=== PATIENT | female | born 1940 | race Caucasian/White ===

== ENCOUNTER 2016-07-16 11:15 | Emergency (ER) | payer MEDICARE ==
[~2016-07-16] VITALS: Ht 165.1 cm; Wt 126.8 kg
[2016-07-16 11:14] VITALS: BP 155/57; PULSE 64; RESP 16; O2SAT 98
[~2016-07-16 11:15] MED LIST: ASPI81TA3 PO; CARV6.252 PO; FUR20 PO; GABA-500 PO; HYDR-3825 PO; LACT1TAB13 PO; LIP40 PO; MULT-666 PO; OMEG300C3 PO; OMEP20CA11 PO; OXYB5TAB10 PO; ZYL100 PO
--- NOTE | 2016-07-16 11:16 | ED.REPORT ---
HPI-General Illness Date of Service Jul 16, 2016 ED Provider: Tavo Charles DO Pt is a 76 y.o. female with an extensive medical hx including pacemaker insertion, lung CA, TIA,CAD, DM, HTN,and HLD who presents to the ED via EMS c/o elevated heart rate lasting 1.5hours onset 0900. Pt states that she was sitting in her chair at home when her sx began. She reports associated dizziness and SOB. She denies chest pain, cough, fever, diaphoresis, and nausea. Upon arrival to the ED pt states her sx had resolved. Nursing Notes Stated Complaint: HEART RACING Chief Complaint: Dysrhythmia/Cardiac Nursing Notes Reviewed: Yes Allergies: Coded Allergies: adhesive tape (Verified Allergy, Mild, Rash, 09/08/15) Rash "after a while." Scheduled Allopurinol (Allopurinol) 100 Mg Tablet 100 MG PO DAILY Aspirin Chew (Aspirin Chew) 81 Mg Chew 81 MG PO DAILY Atorvastatin (Lipitor) 40 Mg Tablet 40 MG PO DAILY Carvedilol (Carvedilol) 12.5 Mg Tablet 12.5 MG PO BID Furosemide (Furosemide) 20 Mg Tab 20 MG PO DAILY Gabapentin (Gabapentin) 100 Mg Capsule 100 MG PO TID Lactobacillus Acidophilus (Acidophilus) 1 Each Tablet 1 EACH PO BID Omeprazole (Omeprazole) 20 Mg Capsule.dr 20 MG PO DAILY Oxybutynin Chloride (Oxybutynin Chloride) 5 Mg Tablet 5 MG PO HS Scheduled PRN Hydrocodone-Acetaminophen 7.5-325 mg (Hydrocodone-Acetaminophen 7.5-325 mg) 1 Each Tablet 0.5-1 TABLET PO Q4H PRN PRN For Pain General Time Seen by MD: 11:15 Chief Complaint Other (Elevated heart rate) Hx Obtained From: Patient Arrived By: Ambulance Sudden in Onset?: Yes Onset Occurred: 1 - 4 hours ago Symptom Duration: 1 - 4 hours Severity: Current: No pain currently Severity: Maximum: No pain Past Medical History Past Medical History Insomnia PVD Chronic kidney disease, stage II gastric and esophageal ulers gout h/o T1NO left mid lung hypermetabolic nodule - s/p Steriotactic Body Radiation Therapy (SBRT) w/resolution on CT 01/19/15 h/o TIA Lung cancer Reports: Cancer, Coronary artery disease, Diabetes mellitus, Hyperlipidemia, Hypertension, Transient ischemic attack Past Surgical History Pacemaker for bradycardia Right rotator cuff repair Bilateral knee replacements lysis of adhesions oopherectomy for ovarian cys stomach stapling x2 Righ hip Repair Reports: Appendectomy, Cholecystectomy, Hysterectomy, Tonsillectomy Reports: Pacemaker insertion, Tubal ligation Family History noncontributory Smoking History Former Smoker Social History Alcohol Use: Denies alcohol use Drug Use: Denies drug use Other Social History: Lives alone, Local resident Ambulatory Status Independent Review of Systems Full Review of Systems Constitutional: Denies: Fever Respiratory: Reports: Shortness of breath, Denies: Non-productive cough Cardiovascular: Reports: Palpitations (Elevated HR), Denies: Chest pain GI: Denies: Nausea Skin: Denies Diaphoresis Neurologic: Reports: Dizziness Complete sys rev & neg: except as marked. Physical Exam Vital Signs Initial VS: Reviewed Head / Eyes: Atraumatic, Normocephalic Extremities: Vascular intact, Neuro intact Skin: Warm, Dry, No cyanosis Neurologic: Alert, Oriented, Nonfocal Psychiatric: Mood/affect normal, Behavior normal, Normal thought content General/Constitutional: Awake, Alert, No acute distress, Well appearing, Well developed, Well hydrated, Well nourished, Not toxic appearing Respiratory / Chest: Atraumatic, Breath sounds NL, Breath sounds = bilat, No respiratory distress, No rales, No rhonchi, No wheezing, No retractions, No stridor Cardiovascular: Heart rate NL, Regular rhythm, Heart sounds NL Lower Ext Edema: Positive: Bilateral 1+, Pitting Pacemaker, left side Abdomen: Atraumatic, Soft, Non-tender, No distention Interpretation & Diagnostics Lab Results Interpretation Test 07/16/16 11:50 White Blood Count 5.6th/mm3 (3.8-10.1) Red Blood Count 4.74mil/mm3 (3.90-5.20) Hemoglobin 13.2g/dL (12.0-15.6) Hematocrit 43.0% (35.0-46.0) Mean Corpuscular Volume 90.7fL (81-100) Mean Corpuscular Hemoglobin 27.8pg (27.0-35.0) Mean Corpuscular Hemoglobin Concent 30.7% (32.0-37.0) Red Cell Distribution Width 16.1% (12.3-15.4) Platelet Count 190bil/L (150-400) Neutrophils (%) (Auto) 65.7% (40-74) Lymphocytes (%) (Auto) 23.2% (14-46) Monocytes (%) (Auto) 7.5% (4-12) Eosinophils (%) (Auto) 2.9% (0-5) Basophils (%) (Auto) 0.5% (0-3) Sodium Level 143mEq/L (134-144) Potassium Level 4.2mEq/L (3.5-5.2) Chloride Level 102mEq/L (97-108) Carbon Dioxide Level 27mmol/L (18-29) Blood Urea Nitrogen 22mg/dL (8-27) Creatinine 0.99mg/dL (0.57-1.00) Estimat Glomerular Filtration Rate 78mL/min (>59) Glucose Level 161mg/dL (60-99) Calcium Level 8.6mg/dL (8.5-10.1) Magnesium Level 1.8mg/dL (1.6-2.6) Total Bilirubin 0.5mg/dL (0.0-1.2) Aspartate Amino Transf (AST/SGOT) 14U/L (0-50) Alanine Aminotransferase (ALT/SGPT) 10U/L (0-32) Alkaline Phosphatase 101U/L (25-165) Troponin T 0.010ug/L (0.0-0.011) Total Protein 6.8g/dL (6.4-8.4) Albumin 3.9g/dL (3.4-5.0) Hold Medrano Top Tube Received (Received) ECG Interpretation Time: 11:29 Interpreted by: ED physician Normal ECG Interpretation: No change from prior ECGs (09/08/15) Rhythm / Conduction: Pacemaker rhythm (rate of 62) X-Ray Chest Interpretation Chest Xray Interpretation: IMPRESSION: 1. Moderate cardiomegaly, without evidence for congestive heart failure. 2. Irregular 2.5 cm lateral left upper lobe opacity is better seen on recent chest CT, with associated overlying rib destruction on CT consistent with neoplasm. Dictated by: Sabino Fraser M.D. on 07/16/2016 at 12:16 Approved by: Sabino Fraser M.D. on 07/16/2016 at 12:19 Re-Eval/Medical Decision Source of Hx: Old records Time of Eval: 13:24 Re-Evaluation/Progress Note: Pt rechecked. Discussed lab results and plan for discharge. Pt understadns and agrees with plan. Counseled Regarding: Diagnosis, Lab results, Need for follow-up, When/why to return to ED Discharge & Departure Primary Impression: Heart palpitations Ruled Out: Acute coronary syndrome Disposition: Home Discharge Condition All VS Reviewed: Yes Condition: Stable Patient Instructions: Palpitations (ED) Additional Instructions: Thank you for entrusting us with your care today. Your examination included a physical exam, interview, EKG, chest x-ray, and labs. Your imaging and lab results are reassuring and no serious mechanism for your heart palpitations were found. I recommend that you follow-up with your primary care physician next week. Please seek care if you experience similar or worsening symptoms. Referrals: Ryann Matos MD (PCP) Scribe Attestation Portions of this note were transcribed by Angeli Peña. Dr. Melvin Epps personally performed the history, physical exam and medical decision-making; I reviewed and confirmed the accuracy of the information in the transcribed note. Signed by: Tracy Starr, 07/16/2016 and 1329. copies to: Ryann Matos MD, Gary R DO Jul 16, 2016 11:15 ANGELI PEÑA Jul 16, 2016 11:26 next week. Please seek care if you experience similar or worsening symptoms. Referrals: Ryann Matos MD (PCP) Scribe Attestation Portions of this note were transcribed by Angeli Peña. Dr. Melvin Epps personally performed the history, physical exam and medical decision-making; I reviewed and confirmed the accuracy of the information in the transcribed note. Signed by: Tracy Starr, 07/16/2016 and 1329. copies to: Ryann Matos MD, Gary R DO Jul 16, 2016 11:15 ANGELI PEÑA Jul 16, 2016 11:26
[2016-07-16 11:59] LABS: BASOPHILS % (AUTO) 0.5 % (0-3); EOSINOPHILS % (AUTO) 2.9 % (0-5); MONOCYTES % (AUTO) 7.5 % (4-12); Mean Corpuscular Hemoglobin 27.8 pg (27.0-35.0); Mean Corpuscular Volume 90.7 fL (81-100); NEUTROPHILS % (AUTO) 65.7 % (40-74); Platelet Count 190 bil/L (150-400)
[2016-07-16 12:12] VITALS: BP 157/61; PULSE 64; RESP 17; O2SAT 96
[2016-07-16 12:19] LABS: TROPONIN T 0.01 ug/L (0.0-0.011)
--- NOTE | 2016-07-16 12:21 | DRSVH ---
PROCEDURE: X-RAY CHEST ONE VIEW, PORTABLE ([id number]) INDICATIONS: 76 year-old female with dysrhythmia. TECHNIQUE: One view of the chest was acquired. COMPARISON: [facility], CT, CT CHEST W CON, 07/06/2016, 10:47. [facility], C R, XR CHEST 2VW, 09/10/2015, 11:05. [facility], CR, XR CHEST 1VW (PORTABLE), 09/08/2015, 5 :56. [facility], CR, XR CHEST 1VW (PORTABLE), 07/21/2015, 8:04. FINDINGS: Surgical changes and devices: Left chest wall dual chamber pacemaker is again noted. Lungs and pleura: No pleural effusions or pneumothorax. Lungs are clear, except for persistent late ral left upper lobe peripheral opacity. Mediastinum: Mediastinal contours appear normal. There is moderate cardiomegaly. There is aortic at herosclerosis. Bones and chest wall: No suspicious bony lesions. Overlying soft tissues appear unremarkable. IMPRESSION: 1. Moderate cardiomegaly, without evidence for congestive heart failure. 2. Irregular 2.5 cm lateral left upper lobe opacity is better seen on recent chest CT, with associate d overlying rib destruction on CT consistent with neoplasm. Dictated by: Sabino Fraser M.D. on 07/16/2016 at 12:16 Approved by: Sabino Fraser M.D. on 07/16/2016 at 12:19
[2016-07-16 12:30] LABS: Magnesium 1.8 mg/dL (1.6-2.6)
[2016-07-16] MEDS ORDERED: CARV12.52 PO (12:49)
[2016-07-16 13:59] VITALS: BP 129/32; PULSE 63; RESP 15; O2SAT 97
[2016-08-14] MEDS ORDERED: GABA-500 PO (14:59)
[2016-08-14] MEDS ORDERED: ASPI-973 PO (14:59)
[2016-08-14] MEDS ORDERED: CARV6.252 PO (14:59)
== END 2016-07-16 14:02 | disposition home or self-care (01) ==
LOC: SED 11:15
DX: R00.2 Palpitations (principal); I12.9 Hypertensive chronic kidney disease with stage 1 through stage 4 chronic kidney disease, or unspecified chronic kidney disease; N18.2 Chronic kidney disease, stage 2 (mild); I25.10 Atherosclerotic heart disease of native coronary artery without angina pectoris; Z86.73 Personal history of transient ischemic attack (TIA), and cerebral infarction without residual deficits; Z90.49 Acquired absence of other specified parts of digestive tract; Z90.710 Acquired absence of both cervix and uterus; Z95.0 Presence of cardiac pacemaker; Z85.118 Personal history of other malignant neoplasm of bronchus and lung; Z87.891 Personal history of nicotine dependence; Z79.82 Long term (current) use of aspirin

== ENCOUNTER 2016-08-02 00:12 | Day surgery (SDC) | payer MEDICARE ==
[2016-08-02] VITALS (15 sets, daily range): BP systolic 117–152; BP diastolic 41–97; PULSE 60–70; RESP 14–18; O2SAT 91–96
[~2016-08-02] VITALS: Ht 165.1 cm; Wt 130.4 kg
[~2016-08-02 00:12] MED LIST changes: +CARV12.52 PO; -CARV6.252 PO; -MULT-666 PO; -OMEG300C3 PO
[2016-08-02] MEDS ORDERED: fentaNYL-PF 50 mCg/mL 2 mL Inj IVPUSH PRN (12:10)
--- NOTE | 2016-08-02 12:37 | NUR ---
CHANTE Patient to [facility] bed 6 at 1100. No family at bedside but patient states son-in-law is available for transport home. Patient denies pain. HL X 1 placed. Labs confirmed with MD. Consent pr and witnessed. History and medications reviewed. Pre-procedure teaching done and questions answered.
[2016-08-02] MEDS ORDERED: Flumazenil 0.1 mg/mL 5 mL Inj IV ONE (12:45)
[2016-08-02] MEDS ORDERED: 0.9% Sodium Chloride 500 ML ONE (12:45)
[2016-08-02] MEDS ORDERED: fentaNYL-PF 50 mCg/mL 2 mL Inj ONE (12:45)
--- NOTE | 2016-08-02 16:21 | DRSVH ---
PROCEDURE: X-RAY CHEST ONE VIEW, PORTABLE ([id number]) INDICATIONS: POST LUNG BIOPSY TECHNIQUE: One view of the chest was acquired. COMPARISON: [facility], CT, CT CHEST W CON, 07/06/2016, 10:47. [facility], C R, XR CHEST 1VW (PORTABLE), 07/16/2016, 11:42. FINDINGS: Surgical changes and devices: Pacemaker. Lungs and pleura: Left upper lobe/lingular opacities are unchanged. No pneumothorax. Mediastinum: Mediastinal contours appear normal. Heart size is enlarged. Bones and chest wall: No suspicious bony lesions. Overlying soft tissues appear unremarkable. Unch anged left lateral fourth and fifth rib fractures. IMPRESSION: Stable exam without post lung biopsy pneumothorax. Dictated by: Ana Oseguera M.D. on 08/02/2016 at 16:18 Approved by: Ana Oseguera M.D. on 08/02/2016 at 16:19
--- NOTE | 2016-08-02 17:23 | DRSVH ---
PROCEDURE: CT-GUIDED BIOPSY OF THE LUNG OR MEDIASTINUM ([id number]) Sedation analgesia for 20 minutes. INDICATIONS: PERIPHERAL LEFT LUNG MASS TECHNIQUE: The indications, alternatives, benefits, risks, and possible complications of the procedure were comm unicated to the patient. Informed written consent from the patient was obtained and placed in the art. Continuous EKG and hemodynamic monitoring was started by trained personnel. For radiation dose reduction, the following was used: automated exposure control, adjustment of mA and/or kV according to patient size. The patient was brought to the CT suite and fabric worker leader spiral CT imaging was performed with localization g rid. The appropriate site for percutaneous access to the biopsy target was marked, was prepped and d raped sterilely, and was infused with local anaesthesia. Under CT guidance, a core biopsy trocar and needle set was advanced to the biopsy target, and specimen(s) were obtained. The trocar and needle were then removed, and the patient was sent for post-procedure monitoring. COMPARISON: None. FINDINGS: Biopsy site: Left upper lobe Needle: 20 gauge biopsy needle with introducer trocar. Number of passes: 4 Medications: 1% lidocaine for local anaesthesia. IV Fentanyl and Versed for conscious sedation for 20 minutes (see nursing record). Complications: None. IMPRESSION: Successful CT-guided biopsy of left upper lobe. Dictated by: Ana Oseguera M.D. on 08/02/2016 at 17:21 Approved by: Ana Oseguera M.D. on 08/02/2016 at 17:22
--- NOTE | 2016-08-02 19:04 | DRSVH ---
PROCEDURE: X-RAY CHEST ONE VIEW, PORTABLE ([id number]) INDICATIONS: POST LUNG BX TECHNIQUE: One view of the chest was acquired. COMPARISON: [facility], CR, XR CHEST 1VW (PORTABLE), 08/02/2016, 15:59. FINDINGS: Surgical changes and devices: There is a cardiac pacemaker in expected position. Lungs and pleura: No pneumothorax. There is opacity in the left midlung zone. Mediastinum: Mediastinal contours appear normal. Heart is mildly enlarged. Bones and chest wall: No suspicious bony lesions. Overlying soft tissues appear unremarkable. IMPRESSION: No pneumothorax post thoracentesis. Dictated by: Apple De La Torre M.D. on 08/02/2016 at 19:02 Approved by: Apple De La Torre M.D. on 08/02/2016 at 19:03
--- NOTE | 2016-08-02 19:32 | DRSVH ---
PROCEDURE: X-RAY CHEST ONE VIEW, PORTABLE ([id number]) INDICATIONS: POST LUNG BX TECHNIQUE: One view of the chest was acquired. COMPARISON: [facility], CR, XR CHEST 1VW (PORTABLE), 08/02/2016, 17:22. [facility], CR, XR CHEST 1VW (PORTABLE), 08/02/2016, 15:59. FINDINGS: Surgical changes and devices: None. Lungs and pleura: No pleural effusions or pneumothorax. Unchanged patchy opacities. Mediastinum: Mediastinal contours appear normal. Heart size is normal. Bones and chest wall: No suspicious bony lesions. Overlying soft tissues appear unremarkable. IMPRESSION: Stable interval exam. No pneumothorax. Dictated by: Ana Oseguera M.D. on 08/02/2016 at 19:29 Approved by: Ana Oseguera M.D. on 08/02/2016 at 19:30
--- NOTE | 2016-08-02 19:54 | NUR ---
CHANTE Patient accompanied to CT for conscious sedation. Patient tolerated procedure well. Patient return from CT lung bx at 1525. Resting comfortably. Denies pain or increased SOB from baseline. RA Spo2 remained >92%. Taking PO, ate dinner and up to BSC. MD cleared for discharge at 1920 post chest X ray. Instructions reviewed with patient and son-in-law, written information given and questions answered.
[2016-08-14] MEDS ORDERED: CARV6.252 PO (14:59)
[2016-08-14] MEDS ORDERED: GABA-500 PO (14:59)
[2016-08-14] MEDS ORDERED: ASPI-973 PO (14:59)
== END 2016-08-02 23:59 | disposition home or self-care (01) ==
LOC: SOUO 00:12
PROVIDERS: ATTEND Radiology Neuroradiology
DX: R91.8 Other nonspecific abnormal finding of lung field (principal)
CPT/HCPCS: 32405; 71010; 77012; 88305; 88342; 99151; J2250; J3010; J7040

== ENCOUNTER 2016-08-15 00:45 | Day surgery (SDC) | payer MEDICARE ==
[2016-08-15] VITALS (14 sets, daily range): BP systolic 106–152; BP diastolic 45–84; PULSE 60–74; RESP 12–21; O2SAT 90–100
[~2016-08-15] VITALS: Ht 165.1 cm; Wt 133.2 kg
[~2016-08-15 00:45] MED LIST changes: +ASPI-973 PO; -ASPI81TA3 PO; -CARV12.52 PO; +CARV6.252 PO
[2016-08-15] MEDS ORDERED: Vancomycin Inj 2,000 MG in 0.9% Sodium Chloride 500 ML IV ONE (08:00)
[2016-08-15 08:06] LABS: BASOPHILS % (AUTO) 0.8 % (0-3); EOSINOPHILS % (AUTO) 3.9 % (0-5); MONOCYTES % (AUTO) 11.1 % (4-12); Mean Corpuscular Hemoglobin 28.3 pg (27.0-35.0); Mean Corpuscular Volume 90.2 fL (81-100); Platelet Count 181 bil/L (150-400)
--- NOTE | 2016-08-15 08:16 | NUR ---
Patient admitted for pacemaker upgrade to biventricular pacemaker.She is accompanied by her son-in-law.
[2016-08-15] MEDS ORDERED: CARV12.52 PO (08:28)
[2016-08-15 08:36] LABS: INR 0.97 ratio
[2016-08-15] MEDS ORDERED: Vancomycin 1,000 mg Inj ONE (09:03)
[2016-08-15] MEDS ORDERED: Bupivacaine-MPF 0.5% 30 mL Inj ONE (09:03)
[2016-08-15] MEDS ORDERED: Water for Injection 50 ML IV ONE ×2 (09:03→10:07)
[2016-08-15] MEDS ORDERED: 0.9% Sodium Chloride 250 ML ONE (09:04)
[2016-08-15] MEDS ORDERED: fentaNYL-PF 50 mCg/mL 2 mL Inj ONE ×4 (10:00→12:49)
[2016-08-15] MEDS ORDERED: Heparin 10,000 Unit/1,000 mL NS Premix IV ONE (10:29)
[2016-08-15] MEDS ORDERED: 0.9% Sodium Chloride 1,000 ML ONE (13:06)
[2016-08-15] MEDS ORDERED: Ondansetron 2 mg/mL 2 mL Inj IVPUSH PRN (14:05)
[2016-08-15] MEDS ORDERED: HYDROcodone-APAP 5-325 mg Tablet PO PRN (14:05)
--- NOTE | 2016-08-15 15:16 | NUR ---
Received Received from forestry laborer about 1445 still c/o itching but after CXR and EKG done stated was better. C/O dizziness during xray. VSS. Tele 100% AV paced. SPO2 drifting down to 87% on RA when dozing so O2 placed at 3L with SPO2 97-99%. Sling and Ice pack placed. Dressing c/d/i. Took sip of water without nausea. Continue to monitor per orders.
--- NOTE | 2016-08-15 15:34 | DRSVH ---
PROCEDURE: X-RAY CHEST ONE VIEW, PORTABLE ([id number]) INDICATIONS: For new leads placed TECHNIQUE: One view of the chest was acquired. COMPARISON: [facility], CR, XR CHEST 1VW (PORTABLE), 08/02/2016, 19:07. FINDINGS: Surgical changes and devices: The AICD leads are intact. Lungs and pleura: No pleural effusions or pneumothorax. Lungs are clear. Mediastinum: Mediastinal contours appear normal. Heart size is normal. Bones and chest wall: No suspicious bony lesions. Overlying soft tissues appear unremarkable. IMPRESSION: No acute cardiopulmonary disease process. Dictated by: Tasha Garcia MD, PhD on 08/15/2016 at 15:31 Approved by: Tasha Garcia MD, PhD on 08/15/2016 at 15:32
[2016-08-15] MEDS: 0.9% Sodium Chloride 1,000 ML IV SCH (18:08)
--- NOTE | 2016-08-15 18:10 | NUR ---
Recovery/Transfer Pt. remained stable. Denies pain. VSS. Dressing c/d/i. Report to Rishabh Negrete RN. Transported to 3027 with all belongings via bed at 1810 in no distress. Addendum: 08/15/16 at 2040 by BERKLEY BUTLER RN Daughter's number given to [facility] staff per her request. [phone]
--- NOTE | 2016-08-15 18:24 | NUR ---
Admit [facility] Pt arrived on [facility] at approx 1820, A&Ox3, reporting no pain, IV ABX infusing, on 1L O2, resting comfortably in bed. Care continues
[2016-08-15] MEDS ORDERED: HYDROcodone-APAP 7.5-325 mg Tablet PO PRN (18:50)
--- NOTE | 2016-08-15 19:23 | OP ---
[address] [address] OPERATIVE REPORT PATIENT: ARIE MACHADO : 1940 MR#: [id number] ADMIT: 08/15/2016 JOB ID: [id number] DATE OF SURGERY: 08/15/2016 PREOPERATIVE DIAGNOSIS(ES): 1. Severe nonischemic cardiomyopathy with ejection fraction 30%. 2. Left bundle branch block with QRS duration 140 msec. 3. [place] Heart Association class III heart failure symptoms. 4. Complete heart block with a dual-chamber pacemaker in place. POSTOPERATIVE DIAGNOSIS(ES): 1. Severe nonischemic cardiomyopathy with ejection fraction 30%. 2. Left bundle branch block with QRS duration 140 msec. 3. [place] Heart [employer] class III heart failure symptoms. 4. Complete heart block with a dual-chamber pacemaker in place. PROCEDURES PERFORMED: 1. Upgrade to a biventricular implantable cardioverter-defibrillator system with placement of an implantable cardioverter-defibrillator multi-lone lead lineman, implantable cardioverter-defibrillator leads, coronary sinus left ventricular leads. 2. Left upper extremity venogram. 3. Coronary sinus venogram. 4. Pocket revision. 5. Fluoroscopy. SURGEON: Papito Maurice MD. [employer] LEADER: Evelyn Swain. Dwayne Harvey PA-C. Nidia Rendon MD, interventional cardiology attending. IMPLANTED DEVICES: 1. [employer] pulse generator, model [id number], serial #[id number]. 2. RV ICD lead, [employer] 7122Q, 58 cm, serial #[id number]. 3. Left ventricular lead [employer] 1458Q, 86 cm, serial #[id number]. CHRONIC DEVICES: 1. Right atrial lead [employer] 2088TC, 46 cm, serial #[id number]. 2. RV lead pace/sense only [employer] 2088TC, 52 cm, serial #[id number] (capped and usable). EXPLANTED DEVICE: [employer] pulse generator, model [id number], serial #[id number]. ANESTHESIA: Bolus dosing of Versed and fentanyl sedation INDICATION: The patient is a pleasant 76-year-old woman with complete heart block, dual-chamber pacemaker in place, advanced cardiomyopathy, [place] Heart Association class III symptoms, left bundle branch block from RV apical pacing. After discussion of the risks and benefits of upgrade to a biventricular ICD system, she opted to proceed. PROCEDURAL DESCRIPTION: Following informed consent, the patient was taken to the EP laboratory in a fasting state where she was prepped in the usual sterile fashion. A left upper extremity venogram was performed and delineated patency of the left subclavian venous drainage system. The left infraclavicular surgical scar was infiltrated with 40 cc of a 50/50 mixture of bupivacaine and lidocaine. Once adequate anesthesia had been achieved, a 4 cm incision was performed overlying the previous surgical scar. Dissection was carried down to the capsule and the leads and generator were freed loose of adhesions. Under venographic guidance, the left subclavian vein was accessed twice with a micropuncture needle to deploy two 0.035, 3 mm J guidewires. Over the first of these, a 7-Gabonese tear-away sheath was advanced and subsequently removed. the RV outflow tract and ultimately the RV septum. The lead was affixed in position using fixation screw. It was connected to the external analyzer and demonstrated appropriately sensed R- waves, impedance. Capture threshold was checked to 10 V and there was no evidence of diaphragmatic stimulation. Attention was now paid to placement of coronary sinus lead. Over of the previously deployed J guidewires, a 9-Gabonese tear-away sheath was advanced. Once the guidewire was removed, a [employer] CS delivery catheter was advanced over a Super CS decapolar EP catheter which was then used to engage the coronary sinus. Extensive manipulation was undertaken to engage the coronary sinus with the Super CS catheter as well as the deflectable decapolar catheter and Glidewire. Ultimately the CS was cannulated on multiple occasions. On one occasion, the middle cardiac vein was cannulated and a quadripolar CS lead was advanced over a Whisper into this branch. Unfortunately the patient had diaphragmatic stimulation along the entire length of the lead with high threshold. We could therefore not use the middle cardiac vein. Attempts to re-engage the coronary sinus were quite difficult and laborious. Over one hour of fluoroscopy was utilized. In the process of doing so, coronary sinus dissection was identified with contrast extravasation. The patient remained hemodynamically stable and asymptomatic for this. Ultimately, the CS was recannulated and after extensive work, a coronary sinus venogram was performed and a modestly-sized branch was identified at the 2 o'clock position off of the mitral annulus. This was chosen as our branch of choice. Again laborious time was taken to engage this branch with a Whisper wire and ultimately a quadripolar lead was advanced into this branch. The Whisper was pulled back and the lead was connected to external analyzer and demonstrated appropriately sensed R waves, impedance, capture threshold. The lead was checked to 10 V. There was no diaphragmatic stimulation. The Whisper wire was pulled back and in its place was placed a finishing stylet. The sheaths were slit loose maintaining the position of the lead. Once the position and redundancy of both prepectoralis fascia using the associated anchoring sleeves and two Ethibond sutures. Bleeding was noted around the orifice of the entry site into the vein and after extensive manual pressure, bleeding was still identified. A pursestring suture was performed around the CS lead insertion site and ultimately controlling bleeding. The medial and inferior aspects of the capsule were infiltrated with lidocaine and scored to extend the pocket size to accommodate the larger footprint of the ICD. The pocket was copiously irrigated with antibiotic solution. A new generator was brought to the field and connected to two new leads as well as the right atrial lead. The leads were tested through the device and had excellent parameters. The RV lead was then disconnected from the chronic pacemaker, capped and secured to the floor of the capsule. The new system was then replaced into the new pocket and secured to the floor of the capsule using 1-0 Ti-Cron suture. The incision was then closed with running layers of absorbable suture. The wound was dressed with skin adhesive and dressing. 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 BLOOD LOSS: 30-40 cc. DEVICE MEASURED DATA: 1. Right atrial lead, 1.7 mV, 390 ohms, 0.75 V at 0.5 msec. 2. RV lead, 600 ohms, 0.5 V at 0.5 msec. 3. LV lead, 410 ohms, 1 V at 0.5 msec (M2 to RV coil). FINAL PROGRAM PARAMETERS: 1. DDDR 60-130 beats per minute. 2. VT monitor zone at 150 beats per minute. 3. VF zone at 180 beats per minute. ATP during charge and maximum output shocks . IMPRESSION: Successful upgrade to a biventricular implantable cardioverter-defibrillator system. PLAN: 1. Stat portable chest x-ray. 2. PA and lateral chest x-ray in the morning. 3. Device interrogation. 4. IV vancomycin through tomorrow. 5. Doxycycline x7 days starting with wound check in one week. ATTENDING STATEMENT: IPapito MD, supervised and performed all aspects of this procedure.
[2016-08-16] MEDS: 0.9% Sodium Chloride 1,000 ML IV SCH ×2 (00:02→10:02)
--- NOTE | 2016-08-16 00:28 | NUR ---
Vanco: ANA RN noted pt had vanco infusing at start of shift; this infusion finished at 2014. RN noted that pt had a "one time dose" scheduled for 0200, upon further investigation RN found that earlier dose of vanco was not scanned and no record found of when or who hung antibiotic. RN confirmed with pharmaicist Jimmy that it would be ok to infuse 0200 dose. Addendum: 08/16/16 at 0446 by HENRIETTA CHRISTIANSON RN Pt informed RN that she had an allergic reaction when vanco was hung with a rash to both arms and itching. Pt states that they "gave me some kind of medication" and continued running the antibiotic at a slower rate. RN found no documentation of pt receiving any medication in computer. An written order was found for a x1 dose of Benadryl at 1500. RN entered vanco as an allergy for patient and attempted to contact the collections assistant comic illustrator x2 for an order of Benadryl prior to administering 0200 dose. Supervisor [employer] did not return call, therefore, RN will pass to dayshift to obtain Benadryl order and give next vanco dose. This was discussed both with pharmacist and charge accounts audit clerk.
[2016-08-16 00:39] VITALS: BP 188/77; PULSE 71; RESP 20; O2SAT 97
[2016-08-16] MEDS ORDERED: Vancomycin Inj 1,000 MG in IV Premix 1 EACH IV ONE (02:05)
[2016-08-16 04:27] VITALS: PULSE 60
--- NOTE | 2016-08-16 06:00 | NUR ---
Uneventful Night: Pt had an uneventful night, no c/o pain, chest pain or SOB. Surgical site CDI, minimal swelling. Pt slept most of the night, pleasant and cooperative with care.
[2016-08-16 06:30] VITALS: BP 145/63; PULSE 72; RESP 20; O2SAT 93
[2016-08-16] MEDS ORDERED: Pantoprazole 20 mg ER24 Tablet PO SCH (06:30)
[2016-08-16] MEDS ORDERED: Tolterodine ER 2 mg ER24 Capsule PO SCH (08:30)
--- NOTE | 2016-08-16 09:18 | NUR ---
Social Work-initial assessment/ discharge: Data:See initial assessment. Pt is a 76 y/o female who was admitted for cardiomyopathy per H&P. Pt's insurance is [employer] and PCP is Ryann Matos MD. EMR reviewed. SW met with pt at bedside to discuss discharge planning, SW role explained. Pt is alert and oriented x3. Pt resides at home alone, but next door to her daughter. Pt does not drive and uses a fww at baseline. Pt has had HH, but cannot remember the agency and has been to [facility] previously.Pt has no [facility]erman care or VA benefits. SW discussed DPOA/ advanced directive, pt confirms that she has completed this, SW encouraged a copy to be brought into the hospital. Pt's daughter to provide transport home today. SW provided phone number and plan on white board in room. No discharge needs identified. All updated and agreeable to plan. Assessment:Pt who is independent at baseline. Plan:Pt to discharge home today via POV. No discharge needs identified. All updated and agreeable to plan. AKBAR Tang Addendum: 08/16/16 at 0921 by MIKAEL WU Amended: Links added.
--- NOTE | 2016-08-16 09:21 | DRSVH ---
PROCEDURE: X-RAY CHEST, TWO VIEWS ([id number]) INDICATIONS: For new lead placement TECHNIQUE: 2 views of the chest were acquired. COMPARISON: [facility], CR, XR CHEST 1VW (PORTABLE), 08/15/2016, 14:49. FINDINGS: Surgical changes and devices: Stable position left chest AICD. Lungs and pleura: No pleural effusions or pneumothorax. Lungs are clear. Mediastinum: Mediastinal contours are normal. Heart size is enlarged. Bones and chest wall: No suspicious bony abnormalities. Soft tissues appear unremarkable. IMPRESSION: Stable chest. Dictated by: Harsh Mansfield Taylor Interpreted: Kathleen Mcmnaus MD on 08/16/2016 at 9:20 Transcribed by: GUNNER on 08/16/2016 at 9:20 Approved by: Kathleen Mcmanus M.D. on 08/16/2016 at 16:33
--- NOTE | 2016-08-16 09:45 | PCM.DIMED ---
Discharge Instructions Date of Service Aug 16, 2016 Dates of Hospitalization Discharge Diagnosis Discharge Diagnosis Complete Heart Block Chronic Right Ventricular Pacing Chronic Systolic Heart Failure Diabetes Hypertension Diet Low fat, Low Sodium, Heart Healthy, Diabetic Activity Other (Keep incision dry one day. Do not extend left elbow high above shoulder for one month. Do not lift, push or pull more than 10 lbs with the left arm for one month.) Call your provider Fever or Chills, Bleeding, Excessive diarrhea Patient Instructions Follow-up in: 1 week Mid-level Provider (F9): Dwayne Harvey PA-C Follow-up with Mid-level in: 6 weeks Dwayne Harvey PA-C Aug 16, 2016 09:45
[2016-08-16] MEDS ORDERED: DOXY100C2 PO (09:48)
[2016-08-16 10:15] VITALS: BP 140/67; PULSE 67; RESP 22; O2SAT 93
--- NOTE | 2016-08-16 11:22 | DIS ---
[address] [address] DISCHARGE SUMMARY PATIENT: ARIE MACHADO : 1940 MR#: [id number] ADMIT: 08/15/2016 JOB ID: [id number] DIS: 08/16/2016 REASON FOR ADMISSION: Upgrade of pacemaker to a biventricular ICD. CHIEF COMPLAINT: Worsening dyspnea and fatigue. BRIEF HISTORY: The patient is a pleasant 76-year-old woman with a history of complete heart block who received a dual-chamber pacemaker in 2012. She was referred back to Dr. Papito Maurice due to worsening dyspnea and fatigue and documentation of severe cardiomyopathy with an LV ejection fraction of 30%. She has been paced in the right ventricle over 90% of the time with a consequent left bundle branch block pattern on the EKG. Her QRS duration is greater than 140 msec. She has been symptomatic with dyspnea and fatigue but denies syncope, chest pain or discomfort. She was advised on upgrading her pacemaker system to a biventricular pacing device with defibrillation capability to prevent sudden cardiac . COURSE IN HOSPITAL: The patient was admitted through the [facility] and taken to the cath lab tech, where after great difficulty, her peripheral IV lines were established and the procedure continued. During insertion of the left ventricular pacing lead by way of the coronary sinus, a small tear in the vein occurred and there was some extravasation of contrast into the pericardial space. She remained stable, her vital signs were essentially unchanged and she was not symptomatic of effusion or tamponade. The procedure was completed with the insertion of the LV pacing lead along with a right ventricular defibrillation lead and the new generator. The patient was stable throughout. She was then transferred back to the [facility] for recovery from sedation and then taken [place] to [place] third [place] [facility] [place] telemetry monitoring. She remained stable overnight and in the morning felt well for discharge home. The pacemaker site was closed and dry and there was no pocket hematoma. Chest x-ray showed good lead positions and no pneumothorax. Device evaluation showed excellent capture and sensing thresholds. A limited echocardiogram was performed, for observation of any pericardial fluid and only trivial amounts were seen. DISPOSITION: The patient was discharged home in good condition with a follow up appointment at the cardiology office in one week. She was advised not to extend her left arm high above her head for one month and not to lift, push or pull more than 10 pounds with the left arm for one month. She will follow her diabetic and heart failure diets and take medications as prescribed. DISCHARGE MEDICATIONS: 1. Doxycycline 100 mg once daily for one week. 2. Allopurinol 100 mg q. a.m. 3. Aspirin 81 mg daily. 4. Atorvastatin 40 mg daily. 5. Carvedilol 12.5 mg b.i.d. 6. Furosemide 20 mg daily. 7. Gabapentin 100 mg t.i.d. 8. Hydrocodone-acetaminophen 7.5-325 mg, one tab q.4 hours p.r.n. pain. 9. Acidophilus 1 tablet b.i.d. 10. Omeprazole 20 mg in the morning. 11. Oxybutynin 5 mg q.h.s. FINAL DIAGNOSES: 1. Complete heart block. 2. Chronic right ventricular pacing. 3. Chronic systolic heart failure. 4. Left ventricular dysfunction with an left ventricular ejection fraction of 30%. 5. Diabetes mellitus. 6. Hypertension.
--- NOTE | 2016-08-16 11:48 | NUR ---
Discharge Pt d/c home with son in law at 1127 via wc by primary RN. IV x2 d/c before leaving. Discharge info discussed with pt and son in law. All questions answered. Pacemaker site readdressed and teaching provided focusing on keeping site clean and dry today and arm in sling as an extra reminder not to pull/push. All personal belongings left with pt. VSS.
--- NOTE | 2016-08-16 16:34 | DRSVH ---
[facility] [address] [place] [address] Echocardiogram Report Name: ARIE MACHADO Date: 08/16/2016 Height: 65 in Hospital Exam Location: [facility] Weight: 294 lb Gender: Female BSA: 2.3 m2 : 1940 Age: 76 yrs BP: 145/63 mmHg Reason For Study: PERICARDIAL EFFUSION Ordering Physician: TRU RUIZ Performed By: Dion Quintero Referring Physician: Dariela LANZA Interpretation Summary 1. Mildly dilated left ventricle with normal wall thickness and an EF by biplane assessment of 40% 2. Normal right ventricular size and systolic function. 3. No evidence for significant valvular pathology 4. No pericardial effusion appreciated Compared to the previous study (images reviewed), the measured ascending aortic diameter is larger. Procedure: A two-dimensional transthoracic echocardiogram with color flow and Doppler was performed in limited views only. The study quality was technically adequate. Comparison is made with the echocardiogram of 05/17/16. The patient has a paced rhythm. Left Ventricle: The left ventricle is mildly dilated. There is borderline concentric left ventricular hypertrophy. EF by biplane assessment is 40%. Right Ventricle: There is a pacemaker lead in the right ventricle. The right ventricle is normal in size and function. Atria: Both atria are moderately dilated. Mitral Valve: There is moderate mitral annular calcification. There is mild mitral regurgitation. Aortic Valve: The aortic valve is trileaflet. The aortic valve is mildly calcified. The aortic valve opens well. There is mild aortic regurgitation. Tricuspid Valve: The tricuspid valve is normal. There is trace tricuspid regurgitation. The right ventricular systolic pressure is estimated at 28 mmHg assuming a right atrial pressure of 8 mm Hg. Great Vessels: The ascending aorta is mildly enlarged. This is increased compared to the previous study. The ascending aorta diameter is 4. cm. The IVC is of normal diameter and collapses less than 50% with a sniff. This suggests a right atrial pressure of 8 mm Hg. Pericardium/ Pleura There is no pericardial effusion. MMode/2D Measurements & Calculations LVIDd: 6.4 cm RA long axis: 5.4 cm asc Aorta LVIDs: 4.6 cm LA A2 area: 27.4 cm Diam: 4.0 cm FS: 28.3 % LA A4 area: 25.5 cm RA area: 23.6 cm IVSd: 1.1 cm LA length (vol): 6.2 cm RA vol: 86.9 ml LVPWd: 1.1 cm LA vol: 94.9 ml RA : 37.3 ml/m2 LA vol index: 40.7 ml/m IVC diam: 2.6 cm EDV(MOD-sp2) LV morales. diameter/BSA LV sys. diameter/BSA : 117.4 ml (cm/m^2): 2.7 (cm/m^2): 2.0 Doppler Measurements & Calculations TR max koby: 222.6 cm/sec TR max P.8 mmHg Reading Physician:04:33 PM
== END 2016-08-16 11:27 | disposition home or self-care (01) ==
LOC: SOUO 00:45 → MPC 18:11 → SOUO 08-16 11:27
PROVIDERS: ATTEND Internal Medicine Cardiovascular Disease
DX: I42.9 Cardiomyopathy, unspecified (principal); Z00.6 Encounter for examination for normal comparison and control in clinical research program; I44.7 Left bundle-branch block, unspecified; I44.2 Atrioventricular block, complete; I50.22 Chronic systolic (congestive) heart failure; Z95.0 Presence of cardiac pacemaker; E66.01 Morbid (severe) obesity due to excess calories; Z68.42 Body mass index [BMI] 45.0-49.9, adult; E11.9 Type 2 diabetes mellitus without complications; I10 Essential (primary) hypertension; Z86.73 Personal history of transient ischemic attack (TIA), and cerebral infarction without residual deficits; E78.5 Hyperlipidemia, unspecified; F17.210 Nicotine dependence, cigarettes, uncomplicated; Z79.82 Long term (current) use of aspirin; C34.92 Malignant neoplasm of unspecified part of left bronchus or lung
CPT/HCPCS: 33225; 33233; 33249; 36415; 71010; 71020; 80048; 85025; 85610; 93005; 99152; 99153; C1730; C1769; C1777; C1882; C1892; C1900; C8924; J0131; J1200; J1644; J2250; J3010; J3370; J7050; Q9967

== ENCOUNTER 2016-10-25 03:43 | Emergency (ER) | payer MEDICARE ==
[~2016-10-25] VITALS: Ht 165.1 cm; Wt 129.1 kg
[~2016-10-25 03:43] MED LIST changes: +CARV12.52 PO; -CARV6.252 PO; +DOXY100C2 PO
[2016-10-25 03:46] VITALS: BP_SYST 158; BP_SYST 160; BP_DIAS 123; BP_DIAS 57; PULSE 63; RESP 12; O2SAT 93; O2SAT 95
--- NOTE | 2016-10-25 03:48 | ED.REPORT ---
HPI-General Illness Date of Service October 25, 2016 ED Provider: Zheng Churchill MD A 76 year old female with an extensive medical history including CKD, CAD, diabetes, hypertension, TIA, peripheral artery disease, and lung cancer s/p radiation therapy presents to the ED with dizziness and lightheadedness onset 0230 while eating and watching TV. The patient also reports nausea and diaphoresis. She denies vomiting, chest pain, shortness of breath, or other symptoms. The patient reports accidentally taking an extra Vicodin this evening. EMS found the patient with a BP of 174/89 and otherwise normal vital signs. She was given 4mg Zofran en route. Nursing Notes Stated Complaint: DIZZINESS Chief Complaint: General Complaint Nursing Notes Reviewed: Yes Allergies: Coded Allergies: vancomycin (Verified Allergy, Intermediate, Rash,Itching,, 08/16/16) information provided by pt "I started itching on both my arms and had a rash" adhesive tape (Verified Allergy, Mild, Rash, 09/08/15) Rash "after a while." Scheduled Allopurinol (Allopurinol) 100 Mg Tablet 100 MG PO MORNING Aspirin (Aspirin) 81 Mg Tablet 81 MG PO DAILY Atorvastatin (Lipitor) 40 Mg Tablet 40 MG PO DAILY Carvedilol (Carvedilol) 12.5 Mg Tablet 12.5 MG PO BID Doxycycline Hyclate (Doxycycline Hyclate) 100 Mg Capsule 100 MG PO DAILY Furosemide (Furosemide) 20 Mg Tab 20 MG PO DAILY Gabapentin (Gabapentin) 100 Mg Capsule 100 MG PO TID am,pm,hs Lactobacillus Acidophilus (Acidophilus) 1 Each Tablet 1 EACH PO BID Omeprazole (Omeprazole) 20 Mg Capsule.dr 20 MG PO MORNING Oxybutynin Chloride (Oxybutynin Chloride) 5 Mg Tablet 5 MG PO HS Scheduled PRN Hydrocodone-Acetaminophen 7.5-325 mg (Hydrocodone-Acetaminophen 7.5-325 mg) 1 Each Tablet 0.5-1 TABLET PO Q4H PRN PRN For Pain General Time Seen by MD: 03:44 Chief Complaint Dizziness, Other (Lightheadedness) Hx Obtained From: Patient Arrived By: Ambulance Onset Occurred: 1 - 4 hours ago Symptom Duration: Since onset Severity: Current: No pain currently Severity: Maximum: No pain Pertinent Negative: Relieved by nothing Context Related History: Reports Cancer, Reports Coronary artery disease, Reports Diabetes mellitus Recent Healthcare: No recent doctor visit Past Medical History Past Medical History Insomnia PVD Chronic kidney disease, stage II gastric and esophageal ulers gout h/o T1NO left mid lung hypermetabolic nodule - s/p Steriotactic Body Radiation Therapy (SBRT) w/resolution on CT 01/19/15 h/o TIA Lung cancer Reports: Cancer, Coronary artery disease, Diabetes mellitus, Hyperlipidemia, Hypertension, Transient ischemic attack Past Surgical History Pacemaker for bradycardia - upgraded to biventricular implantable cardioverter-defibrillator system Right rotator cuff repair Bilateral knee replacements lysis of adhesions oopherectomy for ovarian cys stomach stapling x2 Righ hip Repair Reports: Appendectomy, Cholecystectomy, Hysterectomy, Tonsillectomy Reports: Pacemaker insertion, Tubal ligation Family History noncontributory Smoking History Former Smoker Social History Alcohol Use: Denies alcohol use Drug Use: Denies drug use Other Social History: Lives alone, Local resident Ambulatory Status Independent Review of Systems Full Review of Systems Constitutional: Denies: Fever Respiratory: Denies: Non-productive cough, Shortness of breath Cardiovascular: Denies: Chest pain GI: Reports: Nausea, Denies: Diarrhea, Vomiting Skin: Reports Diaphoresis Neurologic: Reports: Dizziness, Lightheaded Complete sys rev & neg: except as marked. Physical Exam Vital Signs Vital Signs Date Time Temp Pulse Resp B/P Pulse Ox O2 Delivery O2 Flow Rate FiO2 10/25/16 06:17 36.6 60 18 152/56 92 Nasal Cannula 2 10/25/16 04:46 63 18 150/53 95 Nasal Cannula 2 10/25/16 03:46 36.7 63 12 160/57 95 Room Air Initial VS: Reviewed, Vital signs normal Head / Eyes: Atraumatic, Normocephalic ENT: Conjunctiva normal, No scleral icterus Neck: Supple, Full range of motion Respiratory: Breath sounds normal, Clear to auscultation, No respiratory distress Skin: Warm, Dry, No cyanosis Neurologic: Alert, Oriented, Nonfocal Psychiatric: Mood/affect normal, Behavior normal, Normal thought content General/Constitutional: Awake, Alert Appearance / Presentation: Positive: Obese Cardiovascular: Heart rate NL, Regular rhythm, Heart sounds NL Lower Ext Edema: Positive: Bilateral 1+, Pitting Interpretation & Diagnostics Lab Results Interpretation Result Diagram: 10/25/16 0505 10/25/16 0505 Test 10/25/16 05:05 White Blood Count 5.0th/mm3 (3.8-10.1) Red Blood Count 4.62mil/mm3 (3.90-5.20) Hemoglobin 13.0g/dL (12.0-15.6) Hematocrit 41.7% (35.0-46.0) Mean Corpuscular Volume 90.3fL (81-100) Mean Corpuscular Hemoglobin 28.1pg (27.0-35.0) Mean Corpuscular Hemoglobin Concent 31.2% (32.0-37.0) Red Cell Distribution Width 16.3% (12.3-15.4) Platelet Count 186bil/L (150-400) Neutrophils (%) (Auto) 66.6% (40-74) Lymphocytes (%) (Auto) 20.4% (14-46) Monocytes (%) (Auto) 9.8% (4-12) Eosinophils (%) (Auto) 2.8% (0-5) Basophils (%) (Auto) 0.4% (0-3) Sodium Level 138mEq/L (134-144) Potassium Level 4.6mEq/L (3.5-5.2) Chloride Level 100mEq/L (97-108) Carbon Dioxide Level 24mmol/L (18-29) Blood Urea Nitrogen 31mg/dL (8-27) Creatinine 1.08mg/dL (0.57-1.00) Estimat Glomerular Filtration Rate 70mL/min (>59) Glucose Level 132mg/dL (60-99) Calcium Level 9.3mg/dL (8.5-10.1) Magnesium Level 1.9mg/dL (1.6-2.6) Total Bilirubin 0.4mg/dL (0.0-1.2) Aspartate Amino Transf (AST/SGOT) 23U/L (0-50) Alanine Aminotransferase (ALT/SGPT) 20U/L (0-32) Alkaline Phosphatase 119U/L (25-165) Troponin T 0.010ug/L (0.0-0.011) Total Protein 6.9g/dL (6.4-8.4) Albumin 3.7g/dL (3.4-5.0) Hold Medrano Top Tube Received (Received) Lab values outside NL range: no clinical significance. Lab Results Interpretation: Mild dehydration ECG Interpretation ECG Interpretation: A-V dual-paced complexes w/ some inhibition rate 61 Time: 04:12 Interpreted by: ED physician Re-Eval/Medical Decision Med Decision/Clinical Course 76-year-old female who normally takes 1 or 2 Vicodin a day for pain. Today she accidentally took 2 of them this evening. She now feels dizzy and lightheaded. Labs are normal. Her symptoms gradually resolved during her stay here and she is being discharged home with instructions to take more care with her medication. Source of Hx: Old records Time of Eval: 06:00 Patient Status: Condition improved Re-Evaluation/Progress Note: Discussed with patient lab results, diagnosis, and plan for discharge. Follow-up and return to the ER instructions given. Patient agrees with plan for care and all questions were addressed. Counseled Regarding: Diagnosis, Lab results, Need for follow-up, When/why to return to ED Discharge & Departure Primary Impression: Medication adverse effect Encounter type: initial encounter Qualified Code: T88.7XXA - Unspecified adverse effect of drug or medicament, initial encounter Disposition: Home Discharge Condition All VS Reviewed: Yes Condition: Improved Additional Instructions: Your labs are basically normal, showing only some evidence of mild dehydration. I suspect the your symptoms are due to taking the extra Vicodin. Be careful with your medicines. Referrals: Ryann Matos MD (PCP) Scribe Attestation Portions of this note were transcribed by Kellie Arenas. I, Dr. Churchill, personally performed the history, physical exam, and medical decision-making; I reviewed and confirmed the accuracy of the information in the transcribed note. Signed by: Tracy Palma, 10/25/2016, 06:20 copies to: Ryann Matos MD, Howard L MD October 25, 2016 03:48 KELLIE ARENAS October 25, 2016 04:01
[2016-10-25 04:46] VITALS: BP 150/53; PULSE 63; RESP 18; O2SAT 95
[2016-10-25 05:11] LABS: BASOPHILS % (AUTO) 0.4 % (0-3); EOSINOPHILS % (AUTO) 2.8 % (0-5); MONOCYTES % (AUTO) 9.8 % (4-12); Mean Corpuscular Hemoglobin 28.1 pg (27.0-35.0); Mean Corpuscular Volume 90.3 fL (81-100); NEUTROPHILS % (AUTO) 66.6 % (40-74); Platelet Count 186 bil/L (150-400)
[2016-10-25 05:51] LABS: Magnesium 1.9 mg/dL (1.6-2.6); TROPONIN T 0.01 ug/L (0.0-0.011)
[2016-10-25 06:17] VITALS: BP 152/56; PULSE 60; RESP 18; O2SAT 92
[2016-10-25 06:37] VITALS: BP 152/56; PULSE 60; RESP 18; O2SAT 92
== END 2016-10-25 06:30 | disposition home or self-care (01) ==
LOC: SED 03:43
DX: R42 Dizziness and giddiness (principal); R11.0 Nausea; R61 Generalized hyperhidrosis; T40.695A Adverse effect of other narcotics, initial encounter; X58.XXXA Exposure to other specified factors, initial encounter; Y93.89 Activity, other specified; Y92.9 Unspecified place or not applicable; Y99.8 Other external cause status; I13.10 Hypertensive heart and chronic kidney disease without heart failure, with stage 1 through stage 4 chronic kidney disease, or unspecified chronic kidney disease; N18.2 Chronic kidney disease, stage 2 (mild); I25.10 Atherosclerotic heart disease of native coronary artery without angina pectoris; E11.22 Type 2 diabetes mellitus with diabetic chronic kidney disease; E78.5 Hyperlipidemia, unspecified; Z86.73 Personal history of transient ischemic attack (TIA), and cerebral infarction without residual deficits; C34.90 Malignant neoplasm of unspecified part of unspecified bronchus or lung; Z87.891 Personal history of nicotine dependence; Z95.0 Presence of cardiac pacemaker; Z90.710 Acquired absence of both cervix and uterus; Z79.82 Long term (current) use of aspirin; Z88.1 Allergy status to other antibiotic agents